=== PATIENT | male | born 1945 | race African-American/Black ===

== ENCOUNTER → 2021-11-15 | Outpatient (CLI) | payer MEDICARE ==
--- NOTE | 2021-11-15 13:34 | KCIC ---
EXAM: CT head without contrast INDICATION: None available COMPARISON: CT head 02/10/2021 TECHNIQUE: Axial CT imaging through the head without intravenous contrast. One or more of the following individualized dose reduction techniques were utilized for this examinat ion: 1. Automated exposure control 2. Adjustment of the mA and/or kV according to patient size 3. Use of iterative reconstruction technique. FINDINGS: Ventricles and sulci are mildly enlarged. There is mild scattered white matter hypoattenuation. There is a small intermediate density right frontal convexity subdural hematoma measuring 4 mm in thicknes s. No midline shift. Basal cisterns are clear. Paranasal sinuses are clear. Mild scattered fluid in t he right mastoid air cells. Globes and orbits are intact. Small lipoma in the forehead on the right. There is an bone fragment at the vertex with with adjacent hyperdense material, possibly postsurgical . IMPRESSION: 1. Small intermediate density right frontal convexity subdural hematoma measuring 4 mm in thickness, likely subacute. No mass effect or midline shift. There is no prior exam available for comparison. 2. Bone fragment at the vertex of the skull with adjacent hyperdense material. Correlate for prior sk ull fracture and surgical changes. FOR INTERNAL CODING PURPOSES Critical result: Findings discussed with Mady at Dr. Bateman's office at 11/15/2021 1:26 PM. RESULT CODE: (C) Electronically signed by: Angie Hayes MD (11/15/2021 1:31 PM) [id number]
== END ==
LOC: KCIC CT 10:15
PROVIDERS: ATTEND Family Medicine
DX: S06.5X9A Traumatic subdural hemorrhage with loss of consciousness of unspecified duration, initial encounter (principal); I51.7 Cardiomegaly; X58.XXXA Exposure to other specified factors, initial encounter; Y93.89 Activity, other specified; Y92.89 Other specified places as the place of occurrence of the external cause; Y99.8 Other external cause status
CPT/HCPCS: 70450